=== PATIENT | female | born 1985 | race Caucasian/White ===

== ENCOUNTER 2020-01-05 11:16 | Emergency (ER) | payer OTHER, SELFPAY ==
[2020-01-05 11:26] VITALS: BP 114/69; PULSE 69; RESP 16; TEMP 36.6; O2SAT 100
--- NOTE | 2020-01-05 11:45 | ED.GENADULT ---
HPI - General Adult General Chief complaint: Upper Respiratory Infection Stated complaint: Wheezing,Cough Time Seen by Provider: 01/05/20 11:40 Source: patient and RN notes reviewed Mode of arrival: ambulatory Limitations: no limitations History of Present Illness HPI narrative: 34-year-old female presents with complains of upper respiratory infection symptoms, cough, intermittent wheezing, hoarseness, and intermittent headache ( not the worst of her life) for the past 30 days. Recently completed a course of Antibiotics with little relief. Increasing symptoms over the last 72 hours. Constant dry cough with intermittent productive cough (green phlegm). Rhinorrhea and nasal congestion. Denies sore throat. No high fevers, drooling, neck or throat swelling. No chest pain or shortness of breath. Exacerbation factors consist of smoke exposure. Denies nausea, vomiting, and abdominal pain. Tolerating liquids well. Mounika denies being , LMP 1 week ago. Some parts of this dictation were generated by voice recognition software and may contain typographical and/or grammatical inaccuracies. Related Data Home Medications Medication Instructions Recorded Confirmed fluoxetine mg 01/05/20 prazosin 01/05/20 Allergies Allergy/AdvReac Type Severity Reaction Status Date / Time No Known Allergies Allergy Verified 02/28/18 11:29 Review of Systems Review of Systems: Narrative: CONSTITUTIONAL: Denies fever, chills, sweats. EYES: Denies visual changes, redness, discharge. ENT: Denies sore throat, otalgia. Complains of rhinorrhea, congestion, facial pressure, hoarseness. CARDIOVASCULAR: Denies chest pain, palpitations, edema. RESPIRATORY: Denies dyspnea, wheezing. Complains of dry cough, intermittent productive cough. GASTROINTESTINAL: Denies abdominal pain, nausea, vomiting, diarrhea. GENITOURINARY: Denies dysuria, hematuria, abnormal discharge. SKIN: Denies rash or itching. MUSCULOSKELETAL: Denies acute back pain, joint pain, or myalgia. NEUROLOGIC: Denies numbness or focal weakness. Complains of intermittent NELSON. PSYCHIATRIC: Denies anxiety or depression. All systems reviewed & are unremarkable except as noted in HPI and below. [facility] Past Medical History Medical History (Updated 01/06/20 @ 00:00 by Bautista Kern) Anxiety Surgical History Surgical History (Updated 01/05/20 @ 12:27 by HECTOR Becker) History of tubal ligation Family History Family History (Updated 01/05/20 @ 12:28 by HECTOR Becker) Mother Diabetes mellitus Sibling Diabetes mellitus Grandparent Diabetes mellitus Social History Social History (Updated 01/05/20 @ 12:28 by HECTOR Becker) Smoking status: Never smoker Second hand tobacco smoke exposure: Yes Alcohol intake: current Alcohol use details: Occasional Substance use: never Living arrangements: with family Occupation/Education: occupation Gender identity (if verbalized by the patient): Female Comments At time of signature, agree with nurse past medical, surgical, social, and family history. There is no relevant family history pertinent to the presenting complaint. Exam Narrative: Exam Narrative: GENERAL: This is a well-nourished, well-developed patient, in no apparent distress. Talks in full sentences with a hoarse voice without difficulty and ambulates with steady gait without dyspnea. HEAD: normocephalic, atraumatic. EYES: PERRL. Sclera clear/white. Vision is grossly intact. EARS: External ears normal, auditory canals clear and without drainage, TMs normal without perforation. Hearing grossly intact. NOSE: External nose normal with no obvious nasal discharge, nares with mild redness and enlarged turbinates, clear rhinorrhea. SINUSES: Mild tenderness upon palpation to maxillary sinus. THROAT: Mucous membranes moist, posterior pharynx with PND, mild erythema, no exudate, and normal tonsils. No drainage, no concern for
[2020-01-05] MEDS: IPRATROPIUM BR 0.02% INH SOLN 0.5 MG/2.5 ML VIAL INHALATION (11:52)
[2020-01-05] MEDS: ALBUTEROL SULFATE NEB 2.5 MG/3 ML INH INHALATION (11:52)
[2020-01-05] MEDS: predniSONE 20 MG TABLET 60 MG PO (11:53)
[2020-01-05 12:26] VITALS: PULSE 77; RESP 16; O2SAT 100
--- NOTE | 2020-01-05 12:46 | PC.NURSE ---
all medication were scanned in room with in room computer.
== END 2020-01-05 12:39 | disposition home or self-care (01) ==
PROVIDERS: Emergency Provider Nurse Practitioner Family
DX: J32.9 Chronic sinusitis, unspecified (principal); J40 Bronchitis, not specified as acute or chronic
CPT/HCPCS: 99213; G0463; J7512